=== PATIENT | female | born 1990 | race Caucasian/White ===

== ENCOUNTER 2017-02-16 17:48 | Emergency (ER) | payer OTHER ==
[2017-02-16 17:56] VITALS: BP 114/81; BMI 28.8
[2017-02-16] MEDS ORDERED: TORADOL 60 MG VIAL IM ONE (21:53)
--- NOTE | 2017-02-16 21:54 | DR.GENAD ---
HPI - PCP Primary Care Physician: Taz - HPI Comment HPI Comment: HISTORY BELOW. - Complaint/Symptoms Chief Complaint Doctors Comments: URINARY DISCOMFORT, LOWER BACK PAIN THAR IS WEVERE WITH NAUSEA. PAST RECENT KIDNEY STONE THAT WAS NOT DIAGNOSE PER CT. NO FEVER. Chief Complaint:: pt is c/o urinating on self and not having an urge to go. She states she passed kidney stones on wednesday. - Nurses notes reviewed Nurses Notes Review: Yes - Source History Provided: Patient - Mode of Arrival Mode of Arrival: Ambulatory - Timing Onset of Chief Complaint: 02/15/17 Came on: Suddenly - Duration Duration: Constant Duration: Days - Severity Severity: Moderate PMH - PMH Past Medical History: Yes Past Medical History: Anxiety, Dyslipidemia, Hypertension Past Medical History Comment: Bipolor Past Surgical History: Yes Past Surgical History Comment: Left wrist, left foot - Family History History of Family Medical Conditions: Yes Family Medical History: Diabetes Mellitus, Hypertension - Social History Does patient currently use any type of tobacco product: Yes Have you used tobacco products in the last 12 months: Yes Type of Tobacco Use: Cigarettes Does any household member use tobacco: Yes Alcohol Use: None Do you use any recreational Drugs:: No Lives With: Family Lives Where: Home - infectious screening In the last 2 months have you had wt loss of >10#?: NO Have you had fever, night sweats or hemotysis?: No Have you traveled outside the country in the last 6 months?: No Isolation: Standard ROS - Review of Systems Constitutional: Weakness, Fatigue. negative: Diaphoresis, Fever, Loss of Appetite Eyes: No Symptoms Reported. negative: Eye Pain, Discharge ENTM: No Symptoms Reported. negative: Ear Pain, Nose Discharge, Nose Congestion , Throat Pain Respiratoy: No Symptoms Reported. negative: Productive Cough, Non-Productive Cough, Short of Breath, Wheezing, Hemoptysis Cardiovascular: No Symptoms Reported. negative: Chest Pain, Edema, Palpitations Gastrointestinal/Abdominal: Abdominal Pain, Nausea, Vomiting. negative: Constipation, Diarrhea Genitourinary: Dysuria, Frequency. negative: Hematuria Neurological: No Symptoms Reported Musculoskeletal: Muscle Pain Integumentary: No Symptoms Reported Hematologic/Lymphatic: No Symptoms Reported Endocrine: No Symptoms Reported All Other Systems: Reviewed and Negative PE - Vital Signs Vitals: Temperature 97.5 F Pulse Rate 84 Respiratory Rate 18 Blood Pressure 114/81 O2 Sat by Pulse Oximetry 98 - General Limitations: No Limitations General Appearance: Alert - Head Head Exam: Normal Inspection - Eyes Eye exam: Normal Appearance - ENT ENT Exam: Normal External Ear Exam External Ear Exam: Normal External Inspection TM/Canal Exam: Bilateral Normal Nose Exam: Normal Nose Exam Mouth Exam: Normal Inspection Throat Exam: Normal Inspection - Neck Neck Exam: Normal Inspection - Chest Chest Inspection: Symmetric Chest Wall Rise - Respiratory Respiratory Exam: Normal Lung Sounds Bilat Respiratory Exam: Bilateral Clear to Auscultation - Cardiovascular Cardiovascular Exam: Regular Rate, Normal Rhythm, Normal Heart Sounds - Abdominal Exam Abdominal Exam: Normal Bowel Sounds, Soft, Tenderness Abdominal Tenderness: Diffuse, Mild - Extremities Extremities Exam: Normal Inspection - Back Back Exam: (L) CVA Tenderness - Neurologic Neurological Exam: Alert, Oriented X3 - Skin Skin Exam: Normal Color MDM - Differential Diagnosis Differential Diagnosis: UTI, PYELONEPHRITIS, KIDNEY STONE Course - Treatment Treatment: SEE ORDERS. - Education/Counseling Education/Counseling: Patient, Education Educated On: Treatment, Diagnosis, Needs for Follow Up ROR - Labs Reviewed Laboratory Results Reviewed?: Yes Result Diagrams: 02/16/17 22:00 02/16/17 22:00 Laboratory: WBC 8.4 X10^3/uL (3.6-10.0) 02/16/17 22:00 RBC 4.63 X10^6/uL (3.5-5.4) 02/16/17 22:00 Hgb 13.4 g/dL (12.0-16.0) 02/16/17 22:00 Hct 39.1 % (36.0-47.0) 02/16/17 22:00 MCV 84.4 fL (80.0-100.0) 02/16/17 22:00 MCH 29.0 pg (27.0-34.0) 02/16/17 22:00 MCHC 34.3 g/dL (33.0-35.0) 02/16/17 22:00 RDW 13.4 % (11.6-16.5) 02/16/17 22:00 Plt Count 233 X10^3/uL (150.0-450.0) 02/16/17 22:00 MPV 7.6 fL (7.4-11.0) 02/16/17 22:00 Neut % 68.4 % (42.0-75.0) 02/16/17 22:00 Lymph % 22.3 % (21.0-51.0) 02/16/17 22:00 [place] % 7.9 % (0.0-13.0) 02/16/17 22:00 Eos % 1.1 % (0.9-2.9) 02/16/17 22:00 Baso % 0.3 % (0.2-1.0) 02/16/17 22:00 Neut # 5.7 x10^3/uL (2.2-4.8) H 02/16/17 22:00 Lymph # 1.9 X10^3/uL (1.3-2.9) 02/16/17 22:00 [place] # 0.7 x10^3/uL (0.3-0.8) 02/16/17 22:00 Eos # 0.1 x10^3/uL (0.0-0.2) 02/16/17 22:00 Baso # 0.0 X10^3/uL (0.0-0.1) 02/16/17 22:00 Absolute Nucleated RBC 0.0 /100WBC 02/16/17 22:00 Sodium 139 mmol/L (136-145) 02/16/17 22:00 Corrected Sodium TNP 02/16/17 22:00 Potassium 3.6 mmol/L (3.5-5.1) 02/16/17 22:00 Chloride 106 mmol/L (98-107) 02/16/17 22:00 Carbon Dioxide 26.5 mmol/L (21-32) 02/16/17 22:00 BUN 12 mg/dL (7-18) 02/16/17 22:00 Creatinine 0.77 mg/dL (0.55-1.02) 02/16/17 22:00 Est GFR (MDRD) Af Amer > 60 (>60) 02/16/17 22:00 Est GFR (MDRD) Non-Af > 60 (>60) 02/16/17 22:00 Glucose 93 mg/dL (65-99) 02/16/17 22:00 Calcium 9.3 mg/dL (8.5-10.1) 02/16/17 22:00 Corrected Calcium TNP 02/16/17 22:00 Total Bilirubin 0.60 mg/dL (0.2-1.0) 02/16/17 22:00 AST 13 Units/L (15-37) L 02/16/17 22:00 ALT 17 Units/L (12-78) 02/16/17 22:00 Alkaline Phosphatase 67 Units/L (46-116) 02/16/17 22:00 Total Protein 7.5 g/dL (6.4-8.2) 02/16/17 22:00 Albumin 3.9 g/dL (3.4-5.0) 02/16/17 22:00 Globulin 3.6 g/dL (2.5-4.5) 02/16/17 22:00 Albumin/Globulin Ratio 1.1 Ratio (1.1-2.1) 02/16/17 22:00 Specimen Type Clean catch urine 02/16/17 21:46 Urine Color Yellow (YELLOW) 02/16/17 21:46 Urine Appearance Hazy (CLEAR) 02/16/17 21:46 Urine pH 6.5 (5.0 - 8.0) 02/16/17 21:46 Ur Specific [place] 1.020 (1.000-1.030) 02/16/17 21:46 Urine Protein 3+ (NEGATIVE) 02/16/17 21:46 Urine Glucose (UA) Negative (NEGATIVE) 02/16/17 21:46 Urine Ketones Negative (NEGATIVE) 02/16/17 21:46 Urine Occult Blood 4+ (NEGATIVE) 02/16/17 21:46 Urine Nitrite Negative (NEGATIVE) 02/16/17 21:46 Urine Bilirubin Negative (NEGATIVE) 02/16/17 21:46 Urine Urobilinogen Normal (NORMAL) 02/16/17 21:46 Ur Leukocyte Esterase 3+ (NEGATIVE) 02/16/17 21:46 Urine RBC 20-30 /HPF (NEGATIVE) 02/16/17 21:46 Urine WBC 60-80 /HPF (NEGATIVE) 02/16/17 21:46 Ur Squamous Epith Cells Moderate /HPF (NEGATIVE) 02/16/17 21:46 Urine Bacteria 1+ /HPF (NEGATIVE) 02/16/17 21:46 Ur Culture Indicated? Yes/culture set up 02/16/17 21:46 - XRAY XRAY Interpreted by: Radiologist XRAY Findings: REPORT DISCUSSWITH PATIENT - Diagnosis Discharge Problem: UTI (urinary tract infection) Qualifiers: Urinary tract infection type: site unspecified Hematuria presence: with hematuria Qualified Code(s): N39.0 - Urinary tract infection, site not specified ; R31.9 - Hematuria, unspecified Low back pain Qualifiers: Chronicity: acute Back pain laterality: bilateral Sciatica presence: without sciatica Qualified Code(s): M54.5 - Low back pain - Discharge Plan Disposition: 01 HOME, SELF-CARE Condition: Stable Prescriptions: Ibuprofen [MOTRIN TAB 600 MG *] 600 mg PO TID PRN #20 tab PRN Reason: Pain/Inflammation Phenazopyridine HCl 100 mg PO TID PRN #10 tab PRN Reason: Sulfamethoxazole-Trimethoprim [BACTRIM DS TAB 800/160 MG *] 1 tab PO BID #20 tab - Follow ups/Referrals Follow ups/Referrals: NANO ROBLES [Primary Care Provider] - 3 days - Instructions Instructions: Urinary Tract Infection, [id number] Additional Instructions: RETURN TO ED IF WORSE.
[2017-02-16 22:02] LABS: BILIRUBIN,URINE NEGATIVE (NEGATIVE); BLOOD/HEMOGLOBIN,URINE 4+ (NEGATIVE); GLUCOSE, URINE NEGATIVE (NEGATIVE); KETONES,URINE NEGATIVE (NEGATIVE); LEUKOCYTE ESTERASE ,URINE 3+ (NEGATIVE); NITRITES,URINE NEGATIVE (NEGATIVE); PH,URINE 6.5 (5.0 - 8.0); PROTEIN,URINE 3+ (NEGATIVE); UROBILINOGEN,URINE NORMAL (NORMAL)
[2017-02-16 22:07] LABS: BASOPHILS % (AUTO) 0.3 % (0.2-1.0); EOSINOPHILS # (AUTO) 0.1 x10^3/uL (0.0-0.2); EOSINOPHILS % (AUTO) 1.1 % (0.9-2.9); HEMATOCRIT 39.1 % (36.0-47.0); HEMOGLOBIN 13.4 g/dL (12.0-16.0); LYMPHOCYTES # (AUTO) 1.9 X10^3/uL (1.3-2.9); LYMPHOCYTES % (AUTO) 22.3 % (21.0-51.0); MEAN CORPUSCULAR HGB CONC 34.3 g/dL (33.0-35.0); MEAN CORPUSCULAR VOLUME 84.4 fL (80.0-100.0); MEAN PLATELET VOLUME 7.6 fL (7.4-11.0); MONOCYTES # (AUTO) 0.7 x10^3/uL (0.3-0.8); MONOCYTES % (AUTO) 7.9 % (0.0-13.0); NEUTROPHILS # (AUTO) 5.7 x10^3/uL (2.2-4.8); NEUTROPHILS % (AUTO) 68.4 % (42.0-75.0); PLATELET COUNT 233 X10^3/uL (150.0-450.0); RED BLOOD COUNT 4.63 X10^6/uL (3.5-5.4); RED CELL DISTRIBUTION WIDTH 13.4 % (11.6-16.5); WHITE BLOOD COUNT 8.4 X10^3/uL (3.6-10.0)
[2017-02-16 22:22] LABS: ALANINE AMINOTRANSFERASE 17 Units/L (12-78); ALBUMIN 3.9 g/dL (3.4-5.0); ALKALINE PHOSPHATASE 67 Units/L (46-116); ASPARTATE AMINO TRANSFERASE 13 Units/L (15-37); BLOOD UREA NITROGEN 12 mg/dL (7-18); CALCIUM 9.3 mg/dL (8.5-10.1); CARBON DIOXIDE 26.5 mmol/L (21-32); CHLORIDE 106 mmol/L (98-107); CREATININE 0.77 mg/dL (0.55-1.02); GLUCOSE 93 mg/dL (65-99); SODIUM 139 mmol/L (136-145); TOTAL PROTEIN 7.5 g/dL (6.4-8.2); eGFR BLACK RACES > 60 (>60); eGFR NON BLACK RACES > 60 (>60)
[2017-02-16] MEDS ORDERED: TORADOL 60 MG VIAL ONE (22:26)
[2017-02-16 22:42] LABS: APPEARANCE,URINE HAZY (CLEAR); BACTERIA,URINE 1+ /HPF (NEGATIVE); COLOR,URINE YELLOW (YELLOW); RBC,URINE 20-30 /HPF (NEGATIVE); SQUAMOUS EPITHELIAL CELL,UR MODERATE /HPF (NEGATIVE)
--- NOTE | 2017-02-16 23:50 | CT ---
EXAM: CT ABDOMEN AND PELVIS WITHOUT CONTRAST INDICATION: Abdominal pain COMPARISION: No priors available for comparison TECHNIQUE: Axial CT examination of the abdomen and pelvis was performed without intravenous contrast. Coronal a nd sagittal reconstructions were created using the axial data. FINDINGS: The lung bases are clear. The liver, spleen, pancreas, adrenal glands, kidneys, and gallbladder are normal. There is no evidence of biliary ductal dilatation. The aorta and inferior vena cava are norm al in caliber. The bowel loops are nonobstructed. No abnormal mass, lymphadenopathy, or fluid collection. Urinary bladder is normal. Tubal ligation clips are present in the pelvis. The uterus and adnexa ap pear otherwise unremarkable. The appendix is not visualized. No inflammation is seen in the right lo wer quadrant. The regional skeleton is intact. IMPRESSION: Normal CT examination of the abdomen and pelvis. Reported By:
[2017-02-17] MEDS ORDERED: BACTRIM DS TAB PO ONE ×2 (00:04→00:11)
[2017-02-17] MEDS ORDERED: PYRIDIUM PO ONE ×2 (00:05→00:11)
== END 2017-02-17 00:20 | disposition home or self-care (01) ==
LOC: ER 18:05
DX: N39.0 Urinary tract infection, site not specified (principal); R31.9 Hematuria, unspecified; M54.5 Low back pain; R10.84 Generalized abdominal pain
CPT/HCPCS: 36415; 74176; 80053; 81001; 85025; 87086; 96372; 99282; 99283; J1885

== ENCOUNTER 2017-08-06 14:00 | Emergency (ER) | payer OTHER ==
[2017-08-06 14:28] VITALS: BP 113/64; BMI 24.9
== END 2017-08-06 16:35 | disposition left against medical advice (07) ==
LOC: ER 14:52
DX: R07.89 Other chest pain (principal)
CPT/HCPCS: 99281

== ENCOUNTER 2022-05-16 05:58 | Observation (INO) ==
[2022-05-16 06:15] VITALS: BMI 22.3
[2022-05-16 06:39] LABS: BASOPHILS % (AUTO) 0.3 % (0.2-1.0); EOSINOPHILS # (AUTO) 0.1 x10^3/uL (0.0-0.2); EOSINOPHILS % (AUTO) 1.4 % (0.9-2.9); HEMATOCRIT 38.3 % (36.0-47.0); HEMOGLOBIN 13.3 g/dL (12.0-16.0); LYMPHOCYTES # (AUTO) 0.7 X10^3/uL (1.3-2.9); LYMPHOCYTES % (AUTO) 9.3 % (21.0-51.0); MEAN CORPUSCULAR HEMOGLOBIN 29.4 pg (27.0-34.0); MEAN CORPUSCULAR HGB CONC 34.8 g/dL (33.0-35.0); MEAN CORPUSCULAR VOLUME 84.6 fL (80.0-100.0); MEAN PLATELET VOLUME 8.1 fL (7.4-11.0); MONOCYTES # (AUTO) 0.8 x10^3/uL (0.3-0.8); MONOCYTES % (AUTO) 10.8 % (0.0-13.0); NEUTROPHILS % (AUTO) 78.2 % (42.0-75.0); RED BLOOD COUNT 4.52 X10^6/uL (3.5-5.4); RED CELL DISTRIBUTION WIDTH 13.5 % (11.6-16.5); WHITE BLOOD COUNT 7.7 X10^3/uL (3.6-10.0)
[2022-05-16 06:48] LABS: BILIRUBIN,URINE NEGATIVE (NEGATIVE); BLOOD/HEMOGLOBIN,URINE 3+ (NEGATIVE); GLUCOSE, URINE NEGATIVE (NEGATIVE); KETONES,URINE NEGATIVE (NEGATIVE); LEUKOCYTE ESTERASE ,URINE 3+ (NEGATIVE); NITRITES,URINE NEGATIVE (NEGATIVE); PROTEIN,URINE 3+ (NEGATIVE); UROBILINOGEN,URINE NORMAL (NORMAL)
[2022-05-16 06:48] LABS: ALANINE AMINOTRANSFERASE 15 Units/L (12-78); ALBUMIN 3.7 g/dL (3.4-5.0); ALKALINE PHOSPHATASE 54 Units/L (46-116); AMYLASE 74 Units/L (25-115); ASPARTATE AMINO TRANSFERASE 13 Units/L (15-37); BLOOD UREA NITROGEN 35 mg/dL (7-18); CALCIUM 8.9 mg/dL (8.5-10.1); CHLORIDE 96 mmol/L (98-107); CREATININE 3.99 mg/dL (0.55-1.02); LIPASE 361 Units/L (73-393); SODIUM 135 mmol/L (136-145); TOTAL PROTEIN 8.3 g/dL (6.4-8.2); eGFR NON BLACK RACES 14 (>60)
[2022-05-16] MEDS ORDERED: NS 1,000 ML IV 1,000 ML IV ONE (06:56)
[2022-05-16] MEDS ORDERED: ZOFRAN INJ 4 MG VIAL IVP ONE (06:56)
[2022-05-16] MEDS ORDERED: ZOFRAN INJ 4 MG VIAL ONE (06:57)
[2022-05-16] MEDS ORDERED: NS 1,000 ML IV 1,000 ML ONE ×2 (06:57→08:11)
--- NOTE | 2022-05-16 07:01 | DR.NAUSEAF ---
HPI Time Seen Time Seen by Provider: 05/16/22 06:40 Primary Care Physician Primary Care Physician: lee Complaints Chief Complaint Doctors Comments: PATIENT STATES THAT SHE DEVELOPED NAUSEA,VOMITING AND DIARRHEA 3 DAYS AGO AND SOME CHEST PAIN WHEN SHE VOMITS. HAD FEVER FOR 2 DAYS BUT NONE YESTER DAY OR THIS AM. Chief Complaint:: pt stated she went to [place] to get her medicine on wednesday. she stated and she started having chills,fever and vomiting. pt stated her chest, stomach and lower back hurts only when she tries to vomit. Self Treatment fo Chief Complaint: phenergan ,motrin COVID-19 Coronavirus risk:travel/contact w/high risk person: Yes Has patient experienced Coronavirus symptoms: Yes Coronavirus symptoms experienced: Fever Source History Provided: Patient Mode of Arrival Mode of Arrival: Ambulatory Timing Onset of Chief Complaint: 05/12/22 PMH PMH Past Medical History: Yes Past Medical History: Anxiety and Hypertension Past Surgical History: Yes Surgical History: Ortho Surgery Family History History of Family Medical Conditions: Yes Family Medical History: Coronary Artery Disease and Hypertension Social History Type of Tobacco Use: vapes Do you use any recreational Drugs:: No Lives With: Spouse Lives Where: Home Travel Risk Coronavirus risk:travel/contact w/high risk person: Yes Has patient experienced Coronavirus symptoms: Yes Coronavirus symptoms experienced: Fever Infectious screening In the last 2 months have you had wt loss of >10#?: NO Have you had fever, night sweats or hemotysis?: No Have you traveled outside the country in the last 6 months?: No Isolation: Standard ROS Review of Systems Constitutional: Other (NAUSEA VOMITING AND DIARRHEA) Eyes: No Symptoms Reported ENTM: No Symptoms Reported Respiratoy: No Symptoms Reported Cardiovascular: No Symptoms Reported Gastrointestinal/Abdominal: Diarrhea, Nausea and Vomiting Genitourinary: No Symptoms Reported Neurological: No Symptoms Reported Musculoskeletal: No Symptoms Reported Integumentary: No Symptoms Reported Hematologic/Lymphatic: No Symptoms Reported Endocrine: No Symptoms Reported Psychiatric: No Symptoms Reported PE Vital Signs Vitals: Temperature 98.4 F Pulse Rate 93 Respiratory Rate 18 Blood Pressure [Left Arm] 127/82 Blood Pressure 110/73 O2 Sat by Pulse Oximetry 100 General Limitations: No Limitations General Appearance: In Distress (MODERATE DISTRESS.) Head Head Exam: Normal Inspection and Atraumatic Eyes Eye exam: Normal Appearance, PERRL and EOMI ENT ENT Exam: Normal Exam, Normal Oropharynx and Normal External Ear Exam Neck Neck Exam: Normal Inspection, Full ROM and Trachea Midline Chest Chest Inspection: Normal Inspection and Symmetric Chest Wall Rise Respiratory Respiratory Exam: Normal Lung Sounds Bilat and Chest Wall Tenderness Cardiovascular Cardiovascular Exam: Regular Rate and Normal Rhythm Abdominal Exam Abdominal Exam: Normal Inspection, Soft and Hyperactive Bowel Sounds Rectal Rectal Exam: Deferred External Exam: Female: Deferred Extremities Extremities Exam: Normal Inspection and Full ROM Back Back Exam: Normal Inspection and Full ROM Neurologic Neurological Exam: Alert, Oriented X3 and CN II-XII Intact Psychiatric Psychiatric Exam: Normal Affect and Normal Mood Skin Skin Exam: Warm and Dry MDM Differential Diagnosis Differential Diagnosis Comment: VIRAL GASTROENTERITIS,DEHYDRATION,VIRAL URTI COURSE Treatment Treatment: PATIENT WAS FOUND TO HAVE UTI AND WAS GIVEN ROCEPHINE 1 GRAM IV AND 1 LITER NACL BOLUS AND ZOFRAN 4MG 1V AND PCL 40MEQ ORALLY. PATIENT WAS SIGNED OUT TO DR FITZGERALD AT 0808 ROR Labs Reviewed Result Diagrams: 05/16/22 06:27 05/16/22 06:27 Laboratory: WBC 7.7 X10^3/uL (3.6-10.0) 05/16/22 06:27 RBC 4.52 X10^6/uL (3.5-5.4) 05/16/22 06:27 Hgb 13.3 g/dL (12.0-16.0) 05/16/22 06:27 Hct 38.3 % (36.0-47.0) 05/16/22 06:27 MCV 84.6 fL (80.0-100.0) 05/16/22 06:27 MCH 29.4 pg (27.0-34.0) 05/16/22 06:27 MCHC 34.8 g/dL (33.0-35.0) 05/16/22 06:27 RDW 13.5 % (11.6-16.5) 05/16/22 06:27 Plt Count 123 X10^3/uL (150.0-450.0) L 05/16/22 06:27 MPV 8.1 fL (7.4-11.0) 05/16/22 06:27 Neut % (Auto) 78.2 % (42.0-75.0) H 05/16/22 06:27 Lymph % (Auto) 9.3 % (21.0-51.0) L 05/16/22 06:27 [place] % (Auto) 10.8 % (0.0-13.0) 05/16/22 06:27 Eos % (Auto) 1.4 % (0.9-2.9) 05/16/22 06:27 Baso % (Auto) 0.3 % (0.2-1.0) 05/16/22 06:27 Neut # (Auto) 6.0 x10^3/uL (2.2-4.8) H 05/16/22 06:27 Lymph # (Auto) 0.7 X10^3/uL (1.3-2.9) L 05/16/22 06:27 [place] # (Auto) 0.8 x10^3/uL (0.3-0.8) 05/16/22 06:27 Eos # (Auto) 0.1 x10^3/uL (0.0-0.2) 05/16/22 06:27 Baso # (Auto) 0.0 X10^3/uL (0.0-0.1) 05/16/22 06:27 Absolute Nucleated RBC 0.1 /100WBC 05/16/22 06:27 Sodium 135 mmol/L (136-145) L 05/16/22 06:27 Corrected Sodium TNP 05/16/22 06:27 Potassium 3.1 mmol/L (3.5-5.1) L 05/16/22 06:27 Chloride 96 mmol/L (98-107) L 05/16/22 06:27 Carbon Dioxide 22.0 mmol/L (21-32) 05/16/22 06:27 BUN 35 mg/dL (7-18) H 05/16/22 06:27 Creatinine 3.99 mg/dL (0.55-1.02) H 05/16/22 06:27 Est GFR (MDRD) Af Amer 17 (>60) L 05/16/22 06:27 Est GFR (MDRD) Non-Af 14 (>60) L 05/16/22 06:27 Glucose 106 mg/dL (65-99) H 05/16/22 06:27 Calcium 8.9 mg/dL (8.5-10.1) 05/16/22 06:27 Corrected Calcium TNP 05/16/22 06:27 Total Bilirubin 0.30 mg/dL (0.2-1.0) 05/16/22 06:27 AST 13 Units/L (15-37) L 05/16/22 06:27 ALT 15 Units/L (12-78) 05/16/22 06:27 Alkaline Phosphatase 54 Units/L (46-116) 05/16/22 06:27 Total Protein 8.3 g/dL (6.4-8.2) H 05/16/22 06:27 Albumin 3.7 g/dL (3.4-5.0) 05/16/22 06:27 Globulin 4.6 g/dL (2.5-4.5) H 05/16/22 06:27 Albumin/Globulin Ratio 0.8 Ratio (1.1-2.1) L 05/16/22 06:27 Amylase 74 Units/L (25-115) 05/16/22 06:27 Lipase 361 Units/L (73-393) 05/16/22 06:27 Specimen Type Clean catch urine 05/16/22 06:42 Urine Color Yellow (YELLOW) 05/16/22 06:42 Urine Appearance Hazy (CLEAR) 05/16/22 06:42 Urine pH 6.0 (5.0 - 8.0) 05/16/22 06:42 Ur Specific [place] 1.015 (1.000-1.030) 05/16/22 06:42 Urine Protein 3+ (NEGATIVE) 05/16/22 06:42 Urine Glucose (UA) Negative (NEGATIVE) 05/16/22 06:42 Urine Ketones Negative (NEGATIVE) 05/16/22 06:42 Urine Blood 3+ (NEGATIVE) 05/16/22 06:42 Urine Nitrite Negative (NEGATIVE) 05/16/22 06:42 Urine Bilirubin Negative (NEGATIVE) 05/16/22 06:42 Urine Urobilinogen Normal (NORMAL) 05/16/22 06:42 Ur Leukocyte Esterase 3+ (NEGATIVE) 05/16/22 06:42 Urine RBC 0-2 /HPF (0-3) 05/16/22 06:42 Urine WBC 20-30 /HPF (0-5) A 05/16/22 06:42 Ur Squamous Epith Cells Rare /HPF (NEGATIVE) 05/16/22 06:42 Urine Bacteria 1+ /HPF (NEGATIVE) 05/16/22 06:42 Hyaline Casts Few /LPF (NEGATIVE) 05/16/22 06:42 Ur Culture Indicated? Yes/culture set up 05/16/22 06:42 SARS-CoV-2 (PCR) Negative (NEGATIVE) 05/16/22 06:20 Influenza Type A (PCR) Negative (NEGATIVE) 05/16/22 06:20 Influenza Type B (PCR) Negative (NEGATIVE) 05/16/22 06:20 RSV (PCR) Negative (NEGATIVE) 05/16/22 06:20 Opioid Opioid Risk Tool Age (Jay box if 16-45): Yes History of Preadolescent Sexual Abuse: No Total: 1 Total Score Risk Category: Low Risk Copyright: [facility] predicting aberrant behaviors Discharge Plan Discharge Plan Patient Disposition: 01 HOME, SELF-CARE Condition: Stable Prescriptions: No Action [place] (28) 0.3-30 mg-mcg tablet 1 tab PO QDAY ibuprofen [IBU] 800 mg tablet 1 tab PO BID hydrochlorothiazide 12.5 mg capsule 1 cap PO BID lisinopril 5 mg tablet 1 tab PO QDAY buspirone 15 mg tablet 1 tab PO QDAY hydroxyzine pamoate 25 mg capsule 1 cap PO QDAY PRN Health Concerns: Post Hospitalization: new medications and changes needed to prevent readmission or further decline. Pt educated and given instructions on all concerns. Plan of Treatment: Continue with present treatment and follow up plan. Pt is to keep follow up appointment as instructed and take medications as ordered. Follow ups/Referrals Follow ups/Referrals: VÍCTOR VILLAFUERTE [Primary Care Provider] - 3 days Instructions Stand Alone Forms: Precautions for COVID19, [facility], Patient Portal, Social Distancing
[2022-05-16 07:08] LABS: APPEARANCE,URINE HAZY (CLEAR); COLOR,URINE YELLOW (YELLOW)
[2022-05-16 07:09] LABS: BACTERIA,URINE 1+ /HPF (NEGATIVE); HYALINE CASTS, URINE FEW /LPF (NEGATIVE); RBC,URINE 0-2 /HPF (0-3); SQUAMOUS EPITHELIAL CELL,UR RARE /HPF (NEGATIVE)
--- NOTE | 2022-05-16 07:33 | RAD ---
HISTORYVOMITING chills,fever and vomiting. pt stated her chest, stomach and lower back hurts only when she tries to vomit.STUDYCHEST, 1 [id number] diastinal silhouette within normal limits. No focal consolidation, pulmonary edema, sizeable pleural effusion, or visible pneumothorax. No acute osseous finding.IMPRESSIONNo acute appearing finding.Electronically signed by: Mario Son (May 16, 2022 07:32:30)
[2022-05-16] MEDS ORDERED: K-DUR TAB 20 MEQ PO ONE ×2 (07:57→07:59)
[2022-05-16] MEDS ORDERED: ROCEPHIN VIAL 1 GRAM 1 G in NS 100 ML IV 100 ML IV ONE (08:05)
[2022-05-16] MEDS ORDERED: ROCEPHIN VIAL 1 GRAM ONE (08:07)
[2022-05-16] MEDS ORDERED: NS 100 ML IV 100 ML ONE (08:07)
[2022-05-16] MEDS ORDERED: NS 1,000 ML IV 1,000 ML IV SCH (09:00)
[2022-05-16] MEDS ORDERED: NS 1,000 ML IV 1,000 ML with POTASSIUM CHLORIDE INJ 10 MEQ VIAL 10 MEQ IV SCH ×2 (10:00)
[2022-05-16] MEDS ORDERED: BUSPAR PO SCH (10:00)
[2022-05-16] MEDS: NICOTINE PATCH TD SCH (10:04)
--- NOTE | 2022-05-16 10:10 | DR.NAUSEAF ---
HPI Time Seen Time Seen by Provider: 05/16/22 06:40 Primary Care Physician Primary Care Physician: lee HPI Comment HPI Comment: SEE DR. ROMERO NOTE FOR HISTORY AND PHYSICAL. Complaints Chief Complaint:: pt stated she went to [place] to get her medicine on wednesday. she stated and she started having chills,fever and vomiting. pt stated her chest, stomach and lower back hurts only when she tries to vomit. Self Treatment fo Chief Complaint: phenergan ,motrin COVID-19 Coronavirus risk:travel/contact w/high risk person: Yes Has patient experienced Coronavirus symptoms: Yes Coronavirus symptoms experienced: Fever Source History Provided: Patient Mode of Arrival Mode of Arrival: Ambulatory Timing Onset of Chief Complaint: 05/12/22 PMH PMH Past Medical History: Yes Past Medical History: Anxiety and Hypertension Past Surgical History: Yes Surgical History: Ortho Surgery Family History History of Family Medical Conditions: Yes Family Medical History: Coronary Artery Disease and Hypertension Social History Type of Tobacco Use: vapes Do you use any recreational Drugs:: No Lives With: Spouse Lives Where: Home Travel Risk Coronavirus risk:travel/contact w/high risk person: Yes Has patient experienced Coronavirus symptoms: Yes Coronavirus symptoms experienced: Fever Infectious screening In the last 2 months have you had wt loss of >10#?: NO Have you had fever, night sweats or hemotysis?: No Have you traveled outside the country in the last 6 months?: No Isolation: Standard PE Vital Signs Vitals: Temperature 98.4 F Pulse Rate 93 Respiratory Rate 18 Blood Pressure [Left Arm] 127/82 Blood Pressure 110/73 O2 Sat by Pulse Oximetry 100 ROR Labs Reviewed Laboratory Results Reviewed?: Yes Result Diagrams: 05/16/22 06:27 05/16/22 06:27 Laboratory: WBC 7.7 X10^3/uL (3.6-10.0) 05/16/22 06:27 RBC 4.52 X10^6/uL (3.5-5.4) 05/16/22 06:27 Hgb 13.3 g/dL (12.0-16.0) 05/16/22 06:27 Hct 38.3 % (36.0-47.0) 05/16/22 06:27 MCV 84.6 fL (80.0-100.0) 05/16/22 06: MCH 29.4 pg (27.0-34.0) 05/16/22 06: MCHC 34.8 g/dL (33.0-35.0) 05/16/22 06: RDW 13.5 % (11.6-16.5) 05/16/22 06:27 Plt Count 123 X10^3/uL (150.0-450.0) L 05/16/22 06: MPV 8.1 fL (7.4-11.0) 05/16/22 06:27 Neut % (Auto) 78.2 % (42.0-75.0) H 05/16/22 06: Lymph % (Auto) 9.3 % (21.0-51.0) L 05/16/22 06: [place] % (Auto) 10.8 % (0.0-13.0) 05/16/22 06: Eos % (Auto) 1.4 % (0.9-2.9) 05/16/22: Baso % (Auto) 0.3 % (0.2-1.0) 05/16/22 06:27 Neut # (Auto) 6.0 x10^3/uL (2.2-4.8) H 05/16/22 06: Lymph # (Auto) 0.7 X10^3/uL (1.3-2.9) L 05/16/22 06:27 [place] # (Auto) 0.8 x10^3/uL (0.3-0.8) 05/16/22 06: Eos # (Auto) 0.1 x10^3/uL (0.0-0.2) 05/16/22 06:27 Baso # (Auto) 0.0 X10^3/uL (0.0-0.1) 05/16/22 06: Absolute Nucleated RBC 0.1 /100WBC 05/16/22 06: Sodium 135 mmol/L (136-145) L 05/16/22 06:27 Corrected Sodium TNP 05/16/22 06: Potassium 3.1 mmol/L (3.5-5.1) L 05/16/22 06:27 Chloride 96 mmol/L (98-107) L 05/16/22 06:27 Carbon Dioxide 22.0 mmol/L (21-32) 05/16/22 06:27 BUN 35 mg/dL (7-18) H 05/16/22 06:27 Creatinine 3.99 mg/dL (0.55-1.02) H 05/16/22 06:27 Est GFR (MDRD) Af Amer 17 (>60) L 05/16/22 06:27 Est GFR (MDRD) Non-Af 14 (>60) L 05/16/22 06:27 Glucose 106 mg/dL (65-99) H 05/16/22 06:27 Calcium 8.9 mg/dL (8.5-10.1) 05/16/22 06:27 Corrected Calcium TNP 05/16/22 06:27 Total Bilirubin 0.30 mg/dL (0.2-1.0) 05/16/22 06:27 AST 13 Units/L (15-37) L 05/16/22 06:27 ALT 15 Units/L (12-78) 05/16/22 06:27 Alkaline Phosphatase 54 Units/L (46-116) 05/16/22 06:27 Total Protein 8.3 g/dL (6.4-8.2) H 05/16/22 06:27 Albumin 3.7 g/dL (3.4-5.0) 05/16/22 06:27 Globulin 4.6 g/dL (2.5-4.5) H 05/16/22 06:27 Albumin/Globulin Ratio 0.8 Ratio (1.1-2.1) L 05/16/22 06:27 Amylase 74 Units/L (25-115) 05/16/22 06:27 Lipase 361 Units/L (73-393) 05/16/22 06:27 Specimen Type Clean catch urine 05/16/22 06:42 Urine Color Yellow (YELLOW) 05/16/22 06:42 Urine Appearance Hazy (CLEAR) 05/16/22 06:42 Urine pH 6.0 (5.0 - 8.0) 05/16/22 06:42 Ur Specific [place] 1.015 (1.000-1.030) 05/16/22 06:42 Urine Protein 3+ (NEGATIVE) 05/16/22 06:42 Urine Glucose (UA) Negative (NEGATIVE) 05/16/22 06:42 Urine Ketones Negative (NEGATIVE) 05/16/22 06:42 Urine Blood 3+ (NEGATIVE) 05/16/22 06:42 Urine Nitrite Negative (NEGATIVE) 05/16/22 06:42 Urine Bilirubin Negative (NEGATIVE) 05/16/22 06:42 Urine Urobilinogen Normal (NORMAL) 05/16/22 06:42 Ur Leukocyte Esterase 3+ (NEGATIVE) 05/16/22 06:42 Urine RBC 0-2 /HPF (0-3) 05/16/22 06:42 Urine WBC 20-30 /HPF (0-5) A 05/16/22 06:42 Ur Squamous Epith Cells Rare /HPF (NEGATIVE) 05/16/22 06:42 Urine Bacteria 1+ /HPF (NEGATIVE) 05/16/22 06:42 Hyaline Casts Few /LPF (NEGATIVE) 05/16/22 06:42 Ur Culture Indicated? Yes/culture set up 05/16/22 06:42 SARS-CoV-2 (PCR) Negative (NEGATIVE) 05/16/22 06:20 Influenza Type A (PCR) Negative (NEGATIVE) 05/16/22 06:20 Influenza Type B (PCR) Negative (NEGATIVE) 05/16/22 06:20 RSV (PCR) Negative (NEGATIVE) 05/16/22 06:20 Opioid Opioid Risk Tool Age (Jay box if 16-45): Yes History of Preadolescent Sexual Abuse: No Total: 1 Total Score Risk Category: Low Risk Copyright: [facility] predicting aberrant behaviors Discharge Plan Diagnosis Discharge Problem: Acute renal failure, Acute dehydration, Acute gastroenteritis Discharge Plan Patient Disposition: ADMITTED INPATIENT Condition: Stable Orders to Discharge Patient Discharge Orders: Transfer (Routine); Ordered 05/16/22 Ordered By: FEROZ FITZGERALD ADDITIONAL NOTES Additional Notes Additional Notes: PATIENT SIGN OUT TO ME BY DR. ROMERO. REVIEWEDLABS. DISCUSS WITH WRITING MANAGER HE WILL ADMIT PATIENT FOR SEVERE DEHYDRATION WITH ACUTE RENAL FAILURE
[2022-05-16] MEDS ORDERED: NS 1,000 ML IV 1,000 ML with POTASSIUM CHLORIDE INJ 10 MEQ VIAL 10 MEQ IV ONE ×2 (10:23)
[2022-05-16] MEDS ORDERED: ZOFRAN INJ 4 MG VIAL IVP PRN (10:23)
[2022-05-16] MEDS: BUSPAR PO SCH (10:37)
[2022-05-16 13:06] LABS: CRYPTOSPORIDIUM PARVUM ANTIGEN NEGATIVE (NEGATIVE); GIARDIA LAMBLIA ANTIGEN NEGATIVE (NEGATIVE)
--- NOTE | 2022-05-16 13:21 | DR.H&P ---
H&P - History & Physical for Day of: H&P Date: 05/16/22 - Chief Complaint Chief Complaint: N/V, DEHYDRATION - History of Present Illness History of Present Illness: PT IS 31WF ER ADMISSION WITH CO N/V/D FOR 2 DAYS WITH WEAKNESS. PT DENIES ANY FEVER OR UPPER RESPIRATORY SYMPTOMS. PT REPORTS PMH OF SURINDER AND ELEVATED BLOOD PRESSURE. PT WAS COVID NEGATIVE IN ER. PT ADMITTED FOR TREATMENT OF ACUTE ILLNESS. - Past Medical History Past Medical History: Hypertension, Anxiety - Past Surgical History Surgical History: Ortho Surgery - Family History Family Medical History: Coronary Artery Disease, Hypertension - Social History Does patient currently use any type of tobacco product: Yes Have you used tobacco products in the last 12 months: Yes Type of Tobacco Use: vapes Alcohol Use: None Drug Use: None Risks, benefits, and alternatives of opioids discussed: No - Medications Home Medications: cefaclor [From [facility]] Adverse Reaction (Verified 07/17/21 14:37) Penicillins Adverse Reaction (Verified 07/17/21 14:37) red dye Adverse Reaction (Verified 07/17/21 14:37) CONTINUE taking the following medications buspirone 15 mg tablet 1 tab PO QDAY 05/16/22 [History] hydrochlorothiazide 12.5 mg capsule 1 cap PO BID 05/16/22 [History] hydroxyzine pamoate 25 mg capsule 1 cap PO QDAY PRN 05/16/22 [History] ibuprofen 800 mg tablet (IBU) 1 tab PO BID 05/16/22 [History] lisinopril 5 mg tablet 1 tab PO QDAY 05/16/22 [History] norgestrel 0.3 mg-ethinyl estradiol 30 mcg tablet ([place]sel[place] (28)) 1 tab PO QDAY 05/16/22 [History] - Review of Systems Constitutional: Weakness Eyes: No Symptoms Reported ENT: No Symptoms Reported Respiratory: No Symptoms Reported Cardiovascular: No Symptoms Reported Gastrointestinal: Nausea, Vomiting, Diarrhea Genitourinary: No Symptoms Reported Musculoskeletal: No Symptoms Reported Skin: No Symptoms Reported Neurological: No Symptoms Reported - Physical Exam Vital Signs: Temperature 98.4 F Pulse Rate 93 Respiratory Rate 18 Blood Pressure [Left Arm] 127/82 Blood Pressure 110/73 O2 Sat by Pulse Oximetry 100 Oriented: Normal Eyes: Normal Ear: Normal Nose: Normal Throat: Normal Respiratory: RLL Diminished, LLL Diminished Cardiovascular: Normal : Normal Auscultation: Bowel Sounds: Increased Palpation: Normal Tenderness: Epigastric, Mild Skin: Decreased Turgur Musculoskeletal: Normal Psychiatric: Anxiety Affect: Anxious Speech Pattern: Clear, Appropriate - Assessment/Plan (1) Acute renal failure Status: Acute Plan: ADMIT, GENTLE IV HYDRATION. STRICT I&OS, STOOL STUDIES. PRN NAUSEA CONTROL. VERIFY HOME MEDICATION, HOLD HCTZ. IV ATBX THERAPY, UC ORDERED ON ADMISSION (2) UTI (urinary tract infection) Qualifiers: Urinary tract infection type: acute cystitis Hematuria presence: without hematuria Qualified Code(s): N30.00 - Acute cystitis without hematuria Status: Acute (3) Acute dehydration Status: Acute (4) Acute gastroenteritis Status: Acute - Allergies Allergies/Adverse Reactions: Allergies Allergy/AdvReac Type Severity Reaction Status Date / Time cefaclor [From Ceclor] AdvReac Verified 07/17/21 14:37 Penicillins AdvReac Verified 07/17/21 14:37 red dye AdvReac Verified 07/17/21 14:37
[2022-05-16] MEDS ORDERED: D5W 250 ML IV 250 ML IV ONE (14:05)
[2022-05-16] MEDS: PROTONIX INJ 40 MG VIAL IVP SCH (14:25)
[2022-05-16] MEDS: ZITHROMAX INJ 500 MG VIAL 500 MG in D5W 250 ML IV 250 ML IV SCH (14:26)
[2022-05-16] MEDS ORDERED: POTASSIUM CHLORIDE LIQ 20 MEQ UDC PO PRN (16:01)
[2022-05-16] MEDS ORDERED: K-RIDER 10 MEQ/NS 100 ML 10 MEQ/100 ML BAG IV PRN (16:01)
[2022-05-16] MEDS ORDERED: MICRO K EXTEN CAP 10 MEQ PO PRN (16:01)
[2022-05-16] MEDS ORDERED: K-DUR TAB 20 MEQ PO PRN (16:01)
[2022-05-16] MEDS ORDERED: MAGNESIUM SULFATE 1 GRAM/100 mL PREMIX 1 G/100 ML BAG IV PRN (16:01)
[2022-05-16] MEDS ORDERED: KLOR-CON PO PRN (16:01)
[2022-05-16] MEDS ORDERED: POTASSIUM CHL 60 MEQ/NS 0.45% 500 ML IV PRN (16:01)
[2022-05-16] MEDS ORDERED: POTASSIUM CHL 40 MEQ/NS 0.45% 500 ML IV PRN (16:01)
[2022-05-16 16:47] LABS: ALANINE AMINOTRANSFERASE 13 Units/L (12-78); ALBUMIN 3.1 g/dL (3.4-5.0); ALKALINE PHOSPHATASE 43 Units/L (46-116); ASPARTATE AMINO TRANSFERASE 10 Units/L (15-37); BLOOD UREA NITROGEN 25 mg/dL (7-18); CALCIUM 7.7 mg/dL (8.5-10.1); CARBON DIOXIDE 22.6 mmol/L (21-32); CHLORIDE 104 mmol/L (98-107); COR CA(FOR HYPOALB) 8.4 mg/dL (8.5-10.1); SODIUM 139 mmol/L (136-145); eGFR NON BLACK RACES 26 (>60)
[2022-05-16] MEDS: NS 1,000 ML IV 1,000 ML IV SCH ×3 (18:08→20:47)
[2022-05-16] MEDS ORDERED: ATARAX TAB 25 MG PO ONE ×2 (19:55→21:00)
[2022-05-16] MEDS: ATARAX TAB 10 MG PO SCH (20:43)
[2022-05-17] MEDS: NS 1,000 ML IV 1,000 ML IV SCH ×3 (03:48→12:07)
[2022-05-17 05:36] LABS: BASOPHILS % (AUTO) 0.4 % (0.2-1.0); EOSINOPHILS # (AUTO) 0.1 x10^3/uL (0.0-0.2); EOSINOPHILS % (AUTO) 3.5 % (0.9-2.9); HEMATOCRIT 28.2 % (36.0-47.0); LYMPHOCYTES # (AUTO) 1.4 X10^3/uL (1.3-2.9); LYMPHOCYTES % (AUTO) 36.3 % (21.0-51.0); MEAN CORPUSCULAR HEMOGLOBIN 29.3 pg (27.0-34.0); MEAN CORPUSCULAR HGB CONC 34.8 g/dL (33.0-35.0); MEAN CORPUSCULAR VOLUME 84.3 fL (80.0-100.0); MEAN PLATELET VOLUME 8.4 fL (7.4-11.0); MONOCYTES # (AUTO) 0.5 x10^3/uL (0.3-0.8); MONOCYTES % (AUTO) 13.4 % (0.0-13.0); NEUTROPHILS # (AUTO) 1.8 x10^3/uL (2.2-4.8); NEUTROPHILS % (AUTO) 46.4 % (42.0-75.0); RED BLOOD COUNT 3.35 X10^6/uL (3.5-5.4); RED CELL DISTRIBUTION WIDTH 13.1 % (11.6-16.5); WHITE BLOOD COUNT 3.9 X10^3/uL (3.6-10.0)
[2022-05-17 05:55] LABS: ALANINE AMINOTRANSFERASE 11 Units/L (12-78); ALBUMIN 2.5 g/dL (3.4-5.0); ALKALINE PHOSPHATASE 35 Units/L (46-116); ASPARTATE AMINO TRANSFERASE 9 Units/L (15-37); BLOOD UREA NITROGEN 13 mg/dL (7-18); CALCIUM 7.7 mg/dL (8.5-10.1); CARBON DIOXIDE 22.9 mmol/L (21-32); CHLORIDE 108 mmol/L (98-107); COR CA(FOR HYPOALB) 8.9 mg/dL (8.5-10.1); CREATININE 1.16 mg/dL (0.55-1.02); SODIUM 140 mmol/L (136-145); TOTAL PROTEIN 5.8 g/dL (6.4-8.2); eGFR NON BLACK RACES 57 (>60)
[2022-05-17 06:07] LABS: HEMOGLOBIN 9.8 g/dL (12.0-16.0)
[2022-05-17] MEDS ORDERED: D5W 250 ML IV 250 ML IV ONE (09:27)
[2022-05-17] MEDS: PROTONIX INJ 40 MG VIAL IVP SCH (09:46)
[2022-05-17] MEDS: ZITHROMAX INJ 500 MG VIAL 500 MG in D5W 250 ML IV 250 ML IV SCH (09:46)
[2022-05-17] MEDS: BUSPAR PO SCH (09:47)
[2022-05-17] MEDS: NICOTINE PATCH TD SCH (09:47)
[2022-05-17] MEDS: ATARAX TAB 10 MG PO SCH (09:48)
[2022-05-17 12:07] VITALS: BP 120/72
== END 2022-05-17 13:30 | disposition home or self-care (01) ==
LOC: ER 06:02 → ICU 09:20 → INTOOBSV 09:20 → ICU 10:14
PROVIDERS: ADMIT Internal Medicine; ATTEND Internal Medicine
DX: Z20.822 Contact with and (suspected) exposure to COVID-19; R11.2 Nausea with vomiting, unspecified; N30.00 Acute cystitis without hematuria; E86.0 Dehydration; I10 Essential (primary) hypertension; B96.29 Other Escherichia coli [E. coli] as the cause of diseases classified elsewhere; R19.7 Diarrhea, unspecified; N17.8 Other acute kidney failure; A04.5 Campylobacter enteritis; F41.8 Other specified anxiety disorders